=== PATIENT | female | born 1995 | race Caucasian/White ===

== ENCOUNTER 2016-11-07 00:44 | Emergency (ER) | payer SELFPAY ==
[~2016-11-07] VITALS: Ht 167.6 cm; Wt 66.0 kg
[2016-11-07 00:55] VITALS: BP 106/72
== END 2016-11-07 02:50 | disposition left against medical advice (07) ==
LOC: ER 00:46
DX: F12.10 Cannabis abuse, uncomplicated (principal); D64.9 Anemia, unspecified